=== PATIENT | female | born 1985 | race Caucasian/White ===

== ENCOUNTER → 2018-04-25 | Outpatient (CLI) | payer OTHER ==
[~2018-04-25] MED LIST: IOHEXOL 240 MG/ML 50ML VIAL. ONE; IOHEXOL 240 MG/ML 50ML VIAL. PO ONE; IOHEXOL 300 MG/ML 75 ML VIAL. IV ONE
--- NOTE | 2018-04-25 13:10 | RAD ---
CT of the abdomen and pelvis with IV and enteric contrast 04/25/2018. INDICATION: Bilateral abdominal pain, lower abdomen. Concern for diverticulitis. COMPARISON STUDY: None available. TECHNIQUE: Multidetector CT imaging of the abdomen and pelvis is obtained following the administration of intravenous and enteric contrast. Findings visualized lung bases acute abnormality. There is a very small hypodensity in the anterior left renal cortex measuring approximately 4 to 5 mm in diameter. While too small to completely characterize this likely represents a small cyst. The solid viscera of the abdomen are otherwise grossly unremarkable. There is no evidence of bowel obstruction. The appendix is unremarkable in appearance. There is a rounded fat-containing mass in the right adnexa measuring 2 cm in diameter. Central nodular component is noted. No definitive calcification is seen. No definitive calcification is identified by CT. No acute osseous abnormalities are seen. No free fluid or free air is seen in the abdomen or pelvis. IMPRESSION: 1. 2.0 cm fat-containing mass in the right adnexa, with central nodular component. 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 No acute inflammatory change involving the bowel is identified CT DOSING PQRS STATEMENT: One or more of the following individualized dose reduction techniques were utilized for this examination: 1. Automated exposure control 2. Adjustment of the mA and/or kV according to patient size 3. Use of iterative reconstruction technique Electronically signed by: Arnaud Brower MD (04/25/2018 1:07 PM) [id number]
== END | disposition home or self-care (01) ==
LOC: CT 11:08
PROVIDERS: ATTEND Family Medicine
DX: R19.09 Other intra-abdominal and pelvic swelling, mass and lump (principal)
CPT/HCPCS: 74177; Q9966; Q9967

== ENCOUNTER 2018-05-26 14:48 | Emergency (ER) | payer OTHER ==
[~2018-05-26] VITALS: Ht 167.6 cm; Wt 93.0 kg
[2018-05-26 15:19] LABS: BASO % 0 % (0-3); EOS % 1 % (0-3); HEMATOCRIT 39.7 % (36.0-47.0); LYMPH # 0.5 x10^3/uL (1.0-4.8); LYMPH % 7 % (24-48); MEAN CORPUSCULAR HEMOGLOBIN 26 pg (25-35); MEAN CORPUSCULAR HGB CONC 33 g/dL (31-37); MEAN CORPUSCULAR VOLUME 79 fL (79-100); MONO # 0.3 x10^3/uL (0.0-1.1); MONO % 5 % (0-9); NEUT # 6.1 x10^3uL (1.8-7.7); NEUT % 87 % (31-73); PLATELET COUNT 200 x10^3/uL (140-400); RED BLOOD COUNT 5.04 x10^6/uL (3.50-5.40); RED CELL DISTRIBUTION WIDTH 15.8 % (11.5-14.5); WHITE BLOOD COUNT 6.9 x10^3/uL (4.0-11.0)
--- NOTE | 2018-05-26 15:57 | PHYS DOC ---
Past History Past Medical History: Hyperthyroid Past Surgical History: No Surgical History Alcohol Use: None Drug Use: None Adult General Chief Complaint Chief Complaint: CHEST PAIN HPI HPI Patient is a 33 year old female who presents with complaining of chest pain. Patient complaining of nausea since 6 AM as a constant problem and not feeling good all day with episodes of shortness of breath and dizziness with activity. Patient complaining of substernal chest tightness that started at 1400 as a constant pain and rated her pain 7/10 and that decreased to 5/10 at arrival to ER. Patient denies palpitation, focal neuro deficit, fever and chills, cough and congestion, history of the same pain. Patient does not have cardiac risk factor. Patient had an [address] trip about 2 weeks ago but denies lower extremity pain. Review of Systems Review of Systems Constitutional: Denies fever or chills [] Eyes: Denies change in visual acuity, redness, or eye pain [] HENT: Denies nasal congestion or sore throat [] Respiratory: Denies cough, reports shortness of breath [] Cardiovascular: No additional information not addressed in HPI [] GI: Denies abdominal pain, vomiting, bloody stools or diarrhea , reports nausea[ ] : Denies dysuria or hematuria [] Musculoskeletal: Denies back pain or joint pain [] Integument: Denies rash or skin lesions [] Neurologic: Denies headache, focal weakness or sensory changes [] Endocrine: Denies polyuria or polydipsia [] All other systems were reviewed and found to be within normal limits, except as documented in this note. Current Medications Current Medications Current Medications Medications (Trade) Dose Ordered Sig/[facility] Start Time Stop Time Status Last Admin Dose Admin Ketorolac Tromethamine (Toradol 30mg Vial) 30 mg 1X ONCE 05/26/18 16:00 05/26/18 16:01 Ondansetron HCl (Zofran) 4 mg 1X ONCE 05/26/18 16:00 05/26/18 16:01 Allergies Allergies Allergies Coded Allergies Type Severity Reaction Last Updated Verified No Known Drug Allergies 04/25/18 No Physical Exam Physical Exam Constitutional: Well developed, well nourished, mild distress, non-toxic appearance. [] HENT: Normocephalic, atraumatic, bilateral external ears normal, oropharynx moist, no oral exudates, nose normal. [] Eyes: PERRLA, EOMI, conjunctiva normal, no discharge. [] Neck: Normal range of motion, no tenderness, supple, no stridor. [] Cardiovascular: Tachycardia, no murmur [] Lungs & Thorax: Bilateral breath sounds clear to auscultation [] Abdomen: Bowel sounds normal, soft, no tenderness, no masses, no pulsatile masses. [] Skin: Warm, dry, no erythema, no rash. [] Back: No tenderness, no CVA tenderness. [] Extremities: No tenderness, no cyanosis, no clubbing, ROM intact, no edema. [] Neurologic: Alert and oriented X 3, normal motor function, normal sensory function, no focal deficits noted. [] Psychologic: Affect anxious, judgement normal, mood normal. [] Current Patient Data Vital Signs Vital Signs Date Time Temp Pulse Resp B/P (MAP) Pulse Ox O2 Delivery O2 Flow Rate FiO2 05/26/18 14:49 98.3 111 20 100 Room Air Lab Results Laboratory Tests Test 05/26/18 15:00 05/26/18 15:33 White Blood Count 6.9 x10^3/uL (4.0-11.0) Red Blood Count 5.04 x10^6/uL (3.50-5.40) Hemoglobin 13.0 g/dL (12.0-15.5) Hematocrit 39.7 % (36.0-47.0) Mean Corpuscular Volume 79 fL (79-100) Mean Corpuscular Hemoglobin 26 pg (25-35) Mean Corpuscular Hemoglobin Concent 33 g/dL (31-37) Red Cell Distribution Width 15.8 % (11.5-14.5) H Platelet Count 200 x10^3/uL (140-400) Neutrophils (%) (Auto) 87 % (31-73) H Lymphocytes (%) (Auto) 7 % (24-48) L Monocytes (%) (Auto) 5 % (0-9) Eosinophils (%) (Auto) 1 % (0-3) Basophils (%) (Auto) 0 % (0-3) Neutrophils # (Auto) 6.1 x10^3uL (1.8-7.7) Lymphocytes # (Auto) 0.5 x10^3/uL (1.0-4.8) L Monocytes # (Auto) 0.3 x10^3/uL (0.0-1.1) Eosinophils # (Auto) 0.0 x10^3/uL (0.0-0.7) Basophils # (Auto) 0.0 x10^3/uL (0.0-0.2) Magnesium Level 2.0 mg/dL (1.8-2.4) Creatine Kinase 58 U/L (26-192) Troponin I Quantitative < 0.017 ng/mL (0-0.055) Lipase 182 U/L (73-393) POC Urine HCG, Qualitative hcg negative (Negative) EKG EKG EKG interpreted by me. EKG at 1458 showed sinus tachycardia at rate of 110, normal interval and axis, no acute ST-T wave abnormalities[] Radiology/Procedures Radiology/Procedures [] Course & Med Decision Making Course & Med Decision Making Pertinent Labs reviewed. (See chart for details) Evaluation of patient in ER showed 33-year-old female patient with nausea and chest pain since this morning. Patient had unremarkable physical exam except for anxiety and tachycardia. EKG and labs including cardiac enzymes and d-dimer was unremarkable. Patient treated with Toradol and felt better. Plan discharge patient home to diagnose of noncardiac chest pain and panic attack. Patient psychiatric to follow up with her primary care physician. Dragon Disclaimer Dragon Disclaimer This electronic medical record was generated, in whole or in part, using a voice recognition dictation system. Departure Departure: Impression: Primary Impression: Non-cardiac chest pain Additional Impressions: Nausea Tachycardia Disposition: HOME, SELF-CARE (at 1628) Condition: IMPROVED Referrals: HANNAH KUHN DO (PCP) Patient Instructions: Chest Pain (Nonspecific), Nausea, Adult Additional Instructions: Drink plenty of liquids Follow-up with your primary care physician in 3-5 days Return to ER if not getting better Scripts Ondansetron Hcl (ZOFRAN) 4 Mg Tablet 1 TAB PO Q6HRS for nausea and vomiting, #12 TAB Prov: GONZALEZ SOL MD 05/26/18 Naproxen (NAPROSYN) 500 Mg Tablet 500 MG PO BID for pain, #20 TAB Prov: GONZALEZ SOL MD 05/26/18 Problem Qualifiers GONZALZE SOL MD May 26, 2018 15:57
[2018-05-26] MEDS ORDERED: KETOROLAC 30 MG/ML VIAL. IV ONE (16:00)
[2018-05-26] MEDS ORDERED: ONDANSETRON PF 4 MG/2 ML VIAL. IV ONE (16:00)
--- NOTE | 2018-05-26 16:05 | EKG ---
[address] [address] Test Date: 2018-05-26 Test Time: 14:58:25 Pat Name: GAUTAM PEÑA Department: Room: Gender: F Sheriff: : 1985 Requested By: GONZALEZ SOL Order Number: [id number] Reading MD: Measurements Intervals [place] Rate: 110 P: 9 [place]: 138 QRS: 29 QRSD: 78 T: 12 QT: 320 QTc: 438 Interpretive Statements SINUS TACHYCARDIA NO SPECIFIC ECG ABNORMALITIES RI6.01 Unconfirmed report No previous ECG available for comparison
[2018-05-26 16:06] LABS: ALBUMIN 4.2 g/dL (3.4-5.0); ALBUMIN/GLOBULIN RATIO 1.2 (1.0-1.7); CALCIUM 8.5 mg/dL (8.5-10.1); CREATININE 0.8 mg/dL (0.6-1.0); GFR 81.6; POTASSIUM 4.1 mmol/L (3.5-5.1); TOTAL BILIRUBIN 0.5 mg/dL (0.2-1.0); TOTAL PROTEIN 7.8 g/dL (6.4-8.2)
[2018-05-26] MEDS ORDERED: ONDA4TAB7 PO (16:30)
[2018-05-26] MEDS ORDERED: NAPR-683 PO (16:30)
[2018-05-26 16:42] VITALS: BP 118/68
== END 2018-05-26 16:40 | disposition home or self-care (01) ==
LOC: ER 14:48
DX: R07.89 Other chest pain (principal); R00.0 Tachycardia, unspecified; R11.0 Nausea; F41.9 Anxiety disorder, unspecified; E05.90 Thyrotoxicosis, unspecified without thyrotoxic crisis or storm; R42 Dizziness and giddiness
CPT/HCPCS: 36415; 80053; 81025; 82550; 83690; 83735; 84484; 85025; 85379; 85610; 93005; 96374; 96375; 99284; J1885; J2405

== ENCOUNTER → 2018-08-02 | Day surgery (SDC) | payer OTHER ==
[~2018-08-02] MED LIST changes: +ALBUTEROL SULFATE 2.5 MG/3 ML NEBU. NEB PRN; +ATROPINE 0.5 MG/5 ML DISP.SYRIN. IV PRN; -IOHEXOL 240 MG/ML 50ML VIAL. ONE; -IOHEXOL 240 MG/ML 50ML VIAL. PO ONE; -IOHEXOL 300 MG/ML 75 ML VIAL. IV ONE; +IV RINGERS SOLUTION,LACTATED 1,000 ML IV SCH; +LEVO25TA55 PO; +LIDOCAINE 2% PF Vial for OR 5 ML VIAL. ONE; +NALOXONE 0.4 MG/ML VIAL. IV PRN; +NAPR-683 PO; +ONDA4TAB7 PO; +ONDANSETRON PF 4 MG/2 ML VIAL. IV PRN; +PROCHLORPERAZINE 10 MG/2 ML VIAL. IV PRN; +PROPOFOL 20 ML IV ONE; +SERT25TA PO; +diphenhydrAMINE 50 MG/ML VIAL IV PRN
[2018-08-02 12:32] LABS: U PREG PATIENT NEGATIVE (NEG)
[2018-08-02 13:42] VITALS: BP 109/67
== END | disposition home or self-care (01) ==
LOC: SURG 12:06
PROVIDERS: ATTEND Internal Medicine Gastroenterology
DX: R19.4 Change in bowel habit (principal); R19.7 Diarrhea, unspecified; R10.84 Generalized abdominal pain; Z88.5 Allergy status to narcotic agent; Z79.899 Other long term (current) drug therapy; E03.9 Hypothyroidism, unspecified; F32.9 Major depressive disorder, single episode, unspecified; F41.9 Anxiety disorder, unspecified
CPT/HCPCS: 45380; 81025; J2704; J7120; J2001

== ENCOUNTER → 2019-04-04 | Outpatient (CLI) | payer OTHER ==
[2018-08-02 13:42] VITALS: BP 109/67
[~2019-04-04] MED LIST changes: -ALBUTEROL SULFATE 2.5 MG/3 ML NEBU. NEB PRN; -ATROPINE 0.5 MG/5 ML DISP.SYRIN. IV PRN; -IV RINGERS SOLUTION,LACTATED 1,000 ML IV SCH; -LIDOCAINE 2% PF Vial for OR 5 ML VIAL. ONE; -NALOXONE 0.4 MG/ML VIAL. IV PRN; -ONDANSETRON PF 4 MG/2 ML VIAL. IV PRN; -PROCHLORPERAZINE 10 MG/2 ML VIAL. IV PRN; -PROPOFOL 20 ML IV ONE; -diphenhydrAMINE 50 MG/ML VIAL IV PRN
--- NOTE | 2019-04-04 12:29 | RAD ---
SHOULDER 2+V LEFT DATE: 04/04/2019 12:00 AM INDICATION: Shoulder pain COMPARISON: None. FINDINGS: Bones: There is no evidence of acute fracture or dislocation. Joints: The joint spaces are normal. The acromiohumeral distance is not narrowed. Miscellaneous: No abnormal soft tissue calcifications in the shoulder. IMPRESSION: Normal exam Electronically signed by: Juvenal Winslow MD (04/04/2019 12:26 PM) [id number]
--- NOTE | 2019-04-04 12:36 | RAD ---
ELBOW LEFT 3V DATE: 04/04/2019 12:00 AM INDICATION: Elbow pain COMPARISON: None. FINDINGS: Bones: There is no evidence of acute fracture or dislocation. Joints: The joint spaces are normal. There is no joint effusion. Miscellaneous: None. IMPRESSION: Normal exam Electronically signed by: Juvenal Winslow MD (04/04/2019 12:33 PM) [id number]
== END | disposition home or self-care (01) ==
LOC: DXRAD 09:04
PROVIDERS: ATTEND Physician Assistant
DX: M25.522 Pain in left elbow (principal); M25.512 Pain in left shoulder
CPT/HCPCS: 73030; 73080